=== PATIENT | female | born 1995 | race Caucasian/White ===

== ENCOUNTER 2016-09-29 10:46 | Emergency (ER) | payer MEDICAID ==
[2016-09-29 11:43] LABS: HCG,QUALITATIVE URINE NEGATIVE
[2016-09-29 11:45] LABS: URINE BILIRUBIN NEGATIVE (NEGATIVE); URINE BLOOD NEGATIVE (NEGATIVE); URINE GLUCOSE (UA) NEGATIVE (NEGATIVE); URINE LEUKOCYTE ESTERASE 1+ (NEGATIVE); URINE NITRITE NEGATIVE (NEGATIVE); URINE PROTEIN NEGATIVE (NEGATIVE); URINE UROBILINOGEN NORMAL (0-1 mg/dl)
[2016-09-29 11:48] LABS: URINE APPEARANCE HAZY; URINE COLOR LIGHT YELLOW
[2016-09-29 11:57] LABS: URINE BACTERIA 0; URINE EPITHELIAL CELLS OCCASIONAL /hpf; URINE RBC 0 /hpf; URINE WBC 0-4 /hpf
[2016-09-29] MEDS ORDERED: LACTATED RINGERS 1,000 ML ONE (11:58)
[2016-09-29] MEDS ORDERED: MORPHINE SULFATE 4 MG/ML SYRINGE ONE (11:58)
[2016-09-29] MEDS ORDERED: KETOROLAC TROMETHAMINE 15 MG/ML VIAL ONE (11:58)
[2016-09-29] MEDS ORDERED: MORPHINE SULFATE 2 MG/ML SYRINGE ONE (11:58)
[2016-09-29 12:20] LABS: ABSOLUTE NEUTROPHIL COUNT 9.6 K/mm3 (1.8-7.7); BASO # 0.1 K/mm3 (0.0-0.2); BASO % 0.5 % (0.2-1.0); EOS # 0.2 (0.0-0.5); EOS % 1.4 % (0.9-2.9); HEMATOCRIT 35.5 % (37.0-47.0); HEMOGLOBIN 11.4 gm/l (12.0-16.0); IMM NEUT% 0.3 % (0-1); LYMPH # 1.8 (1.0-4.8); MEAN CORPUSCULAR HEMOGLOBIN 27.9 pg (27.0-31.0); MEAN CORPUSCULAR HGB CONC 32.1 g/dl (33.0-37.0); MEAN PLATELET VOLUME 10.1 fl (7.4-10.4); MONO # 0.5 (0.0-0.8); MONO % 3.9 % (4-12); NEUT % 78.9 % (43-75); PLATELET COUNT 298 K/mm3 (130-400); RED CELL DISTRIBUTION WIDTH 13.2 % (11.5-14.5)
[2016-09-29 12:36] LABS: ALB/GLOB RATIO 1.4 (>1.0); ALBUMIN 4.3 gm/dL (3.5-5.7)
[2016-09-29] MEDS ORDERED: DOXYCYCLINE HYCLATE 100 MG TABLET ONE (12:38)
[2016-09-29] MEDS ORDERED: CEFTRIAXONE 1 GRAM DUPLEX 50 ML IV ONE (12:38)
[2016-09-29] MEDS ORDERED: METRONIDAZOLE 500 MG TABLET ONE (12:39)
[2016-09-29 13:25] LABS: CALCIUM 9.2 mg/dL (8.6-10.3)
--- NOTE | 2016-09-29 14:32 | US ---
PELVIC COMPLETE, TRANSVAGINAL ECHOGRAPHY COMPARISON: None. HISTORY: 21 years old. Lower abdominal pain for 2 days. LMP 09/26/2016. Technique: Transabdominal and transvaginal. FINDINGS: Uterus: Retroverted. Length 7.3 cm by AP 4.6 cm transverse 5.1 cm. Anterior fundal leiomyoma, 1.6 x 1.5 x 1.5 cm. Increased vascularity. Endometrium: 7 mm thickness with some fluid.. Right ovary: 3.4 x 1.8 x 1.9 cm. Volume 5.8 mL. Normal blood flow. Left ovary: 4.1 x 2.3 x 1.7 cm. Volume 8.0 mL. Normal blood flow. Adnexa mass: None Fluid: None. IMPRESSION: 1. Nonspecific findings of minimal fluid in a normal thickness endometrium, mild hypervascularity of the uterus with a 1.6 cm leiomyoma, and normal ovaries without evidence of fallopian tube distention. The report was sent to the emergency department electronic medical record system 09/29/2016 at 14:33
[2016-09-30 15:34] LABS: CHLAMYDIA BD Negative (Negative); N.GONORRHOEAE BD Positive (Negative); SOURCE Urine (())
== END 2016-09-29 14:59 | disposition home or self-care (01) ==
LOC: ED 10:46
DX: N73.9 Female pelvic inflammatory disease, unspecified (principal)
CPT/HCPCS: 83690; 87491; 87591; 81025; 85025; 80053; 81001; 87210; 76856; 76830; 96375 ×2; 99284 ×2; 96374; 96361 ×3; A9270 ×2; J2270 ×2; J1885; J7120; J0696